=== PATIENT | female | born 1975 | race Caucasian/White ===

== ENCOUNTER → 2016-11-01 | Outpatient (CLI) | payer BC ==
[~2016-11-01] MED LIST: ALBU1AER9 INH; CHOL20007 PO; CIPR-255 PO; IBUP-1050 PO; NAPR-1169 PO
--- NOTE | 2016-11-01 18:04 | DIAGNOSTIC IMAGING REPORT ---
MRI ABDOMEN WITHOUT CONTRAST CLINICAL HISTORY: ABNORMAL GROWTH IN LIVER CONSISTENT W/ HEMANGIOMA hemangioma TECHNIQUE: Imaging was performed without IV contrast enhancement. COMPARISON STUDY: CT dated 04/23/2016. Abdominal ultrasound dated 04/17/2016. FINDINGS: Stable evaluation of the liver. 3 lesions consistent with benign hemangiomas occupying primarily the right hepatic lobe. The largest of the superior aspect of the right hepatic lobe is unchanged at 3.6 cm. At the inferior aspect of the right hepatic lobe peripherally is a 6.9 cm focus of increased signal. There is a small 6 mm nodule central left hepatic lobe unchanged in the patient's prior ultrasonic evaluation. There there are no new or interval lesions. The biliary ductal system shows no evidence for distention. The common bile duct is negative for filling defect. Liver spleen and pancreas appear unremarkable other than that noted. Kidneys are uniform in overall signal character. There is no upper abdominal adenopathy. IMPRESSION: 1. Stable evaluation of the abdomen with unchanging hemangiomas of the right as well as left hepatic lobe. 2. No new interval or progressive lesion. 3. All remaining components of the study are unremarkable. Electronically signed by: Adria Vallejo M.D. 11/01/2016 6:02 PM Dictated Date/Time: 11/01/2016 5:59 PM
== END | disposition home or self-care (01) ==
LOC: C.MRI 16:27
PROVIDERS: ATTEND Family Medicine
DX: R93.2 Abnormal findings on diagnostic imaging of liver and biliary tract (principal)

== ENCOUNTER → 2017-01-01 | Outpatient (CLI) | payer BC | END | disposition home or self-care (01) | LOC: C.RDSM 12:48 | PROVIDERS: ATTEND Family Medicine Sports Medicine | DX: M72.2 Plantar fascial fibromatosis (principal); R20.2 Paresthesia of skin ==